=== PATIENT | female | born 1935 | race Caucasian/White ===

== ENCOUNTER 2017-11-21 13:45 | Emergency (ER) | payer OTHER ==
[~2017-11-21] VITALS: Ht 157.5 cm; Wt 76.2 kg
[2017-11-21 13:50] VITALS: Ht 157.5 cm; Wt 76.2 kg
[2017-11-21 14:35] VITALS: BP 124/69
== END 2017-11-21 14:35 | disposition home or self-care (01) ==
LOC: ED 13:45
DX: S80.812A Abrasion, left lower leg, initial encounter (principal); I10 Essential (primary) hypertension; Z88.0 Allergy status to penicillin; W22.8XXA Striking against or struck by other objects, initial encounter; Y93.89 Activity, other specified; Y92.89 Other specified places as the place of occurrence of the external cause; Y99.8 Other external cause status
CPT/HCPCS: 90715

== ENCOUNTER 2018-01-04 16:27 | Inpatient (IN) | payer OTHER ==
[~2018-01-04] VITALS: Ht 157.5 cm; Wt 79.4 kg
[2018-01-04 16:42] VITALS: Ht 157.5 cm; Wt 79.4 kg
[2018-01-04 18:53] LABS: CALCIUM 9.7 mg/dL (8.5-10.1); CARBON DIOXIDE 30.3 mmol/L (21-32); CHLORIDE SERUM 97 mmol/L (98-107); GLUCOSE SERUM 118 mg/dL (74-106); SODIUM SERUM 136 mmol/L (136-145)
[2018-01-04 18:59] LABS: CREATININE SERUM 6.4 mg/dL (0.6-1.0)
[2018-01-04 19:00] LABS: BASOPHIL % 0.4 % (0-2); PLATELET COUNT 152 x10^3mcL (130-400)
[2018-01-04 19:02] LABS: RED CELL DISTRIBUTION WIDTH 18.2 % (11.5-14.5)
[2018-01-04 19:50] LABS: ERYTHROCYTE SED RATE 66 mm/hr (0-30)
[2018-01-04 21:53] VITALS: BP 126/70
[2018-01-05 04:50] VITALS: BP 108/54
[2018-01-05 06:41] LABS: BASOPHIL % 0.7 % (0-2); PLATELET COUNT 140 x10^3mcL (130-400)
[2018-01-05 07:27] LABS: ALBUMIN 3.3 g/dL (3.4-5.0); ALKALINE PHOSPHATASE 111 U/L (46-116); ALT/SGPT 15 U/L (14-59); AST/SGOT 9 U/L (15-37); BILIRUBIN TOTAL 0.5 mg/dL (0.20-1.00); CALCIUM 9.1 mg/dL (8.5-10.1); CARBON DIOXIDE 26.3 mmol/L (21-32); CHLORIDE SERUM 100 mmol/L (98-107); GLUCOSE SERUM 81 mg/dL (74-106); MAGNESIUM 2.6 mg/dL (1.8-2.4); PHOSPHOROUS 6.7 mg/dL (2.5-4.9); SODIUM SERUM 138 mmol/L (136-145); TOTAL PROTEIN, SERUM 7.5 g/dL (6.4-8.2)
[2018-01-05 07:29] LABS: POTASSIUM SERUM 5.6 mmol/L (3.5-5.1)
[2018-01-05] MEDS ORDERED: LISINOPRIL2.5 MG PO (09:45)
[2018-01-05] MEDS ORDERED: XANAX0.5 MG PO (09:46)
[2018-01-05] MEDS ORDERED: AMLODIPINE BES2.5 M1 PO (09:47)
[2018-01-05] MEDS ORDERED: PRILOSEC OTC20 M1 PO (09:48)
[2018-01-05] MEDS ORDERED: PHOSLYRA667 MG/5 M PO (09:51)
[2018-01-05 10:06] VITALS: BP 111/62
[2018-01-05 13:43] VITALS: BP 111/62
[2018-01-05 16:57] VITALS: BP 123/67
[2018-01-05 20:15] VITALS: BP 131/51
== END 2018-01-05 21:40 | disposition home or self-care (01) | DRG 383 ==
LOC: ED 16:27 → MU 20:57
PROVIDERS: Emergency Medicine; Internal Medicine Pulmonary Disease
PROC: 5A1D70Z Performance of Urinary Filtration, Intermittent, Less than 6 Hours Per Day (ICD-10-PCS; principal; 2018-01-05)
DX: L03.116 Cellulitis of left lower limb (principal); I12.0 Hypertensive chronic kidney disease with stage 5 chronic kidney disease or end stage renal disease; E87.5 Hyperkalemia; I48.0 Paroxysmal atrial fibrillation; N18.6 End stage renal disease; J45.909 Unspecified asthma, uncomplicated; F41.9 Anxiety disorder, unspecified; K21.9 Gastro-esophageal reflux disease without esophagitis; D63.8 Anemia in other chronic diseases classified elsewhere; S81.802A Unspecified open wound, left lower leg, initial encounter; W18.39XA Other fall on same level, initial encounter; Z88.0 Allergy status to penicillin; Z99.2 Dependence on renal dialysis; Z95.828 Presence of other vascular implants and grafts; Y93.89 Activity, other specified; Z79.01 Long term (current) use of anticoagulants; Y92.098 Other place in other non-institutional residence as the place of occurrence of the external cause; Y99.8 Other external cause status
CPT/HCPCS: 83880; J1644; J2270; J3370; J3490; J7030; J7050; Q0092

== ENCOUNTER 2018-02-16 16:23 | Emergency (ER) | payer OTHER ==
[~2018-02-16] VITALS: Ht 152.4 cm; Wt 75.3 kg
[~2018-02-16 16:23] MED LIST: AMLODIPINE BES2.5 M1 PO; LISINOPRIL2.5 MG PO; PHOSLYRA667 MG/5 M PO; PRILOSEC OTC20 M1 PO; XANAX0.5 MG PO
[2018-02-16 16:26] VITALS: Ht 152.4 cm; Wt 75.3 kg
[2018-02-16 18:29] VITALS: BP 118/73
== END 2018-02-16 18:29 | disposition home or self-care (01) ==
LOC: ED 16:23
DX: L03.116 Cellulitis of left lower limb (principal); I10 Essential (primary) hypertension; Z99.2 Dependence on renal dialysis; Z88.0 Allergy status to penicillin
CPT/HCPCS: J3490; Q0092

== ENCOUNTER 2018-09-03 15:08 | Emergency (ER) | payer OTHER ==
[~2018-09-03] VITALS: Ht 152.4 cm; Wt 76.7 kg
[~2018-09-03 15:08] MED LIST changes: +COUMADIN3 MG PO; +GOOD SENSE OMEP20 MG PO; +PROAIR HFA8.5 GM IH; +RENA-VITE RX1 TAB
[2018-09-03 15:45] VITALS: BP 146/91; Ht 152.4 cm; Wt 76.7 kg
== END 2018-09-03 19:16 | disposition home or self-care (01) ==
LOC: ED 15:08
DX: K12.0 Recurrent oral aphthae (principal); I10 Essential (primary) hypertension; Z98.890 Other specified postprocedural states; Z88.0 Allergy status to penicillin

== ENCOUNTER 2018-10-13 10:21 | Emergency (ER) | payer OTHER ==
[~2018-10-13] VITALS: Ht 162.6 cm; Wt 75.3 kg
[~2018-10-13 10:21] MED LIST changes: -PHOSLYRA667 MG/5 M PO
[2018-10-13 10:46] VITALS: Ht 162.6 cm; Wt 75.3 kg
[2018-10-13 12:55] VITALS: BP 166/98
== END 2018-10-13 13:24 | disposition home or self-care (01) ==
LOC: ED 10:21
DX: G44.209 Tension-type headache, unspecified, not intractable (principal); I12.0 Hypertensive chronic kidney disease with stage 5 chronic kidney disease or end stage renal disease; N18.6 End stage renal disease; Z99.2 Dependence on renal dialysis; Z88.0 Allergy status to penicillin
CPT/HCPCS: J1885; J2765

== ENCOUNTER 2018-11-09 14:34 | Inpatient (IN) | payer OTHER ==
[~2018-11-09] VITALS: Ht 157.5 cm; Wt 73.7 kg
[2018-11-09 14:50] VITALS: Ht 157.5 cm; Wt 73.7 kg
--- NOTE | 2018-11-09 15:09 | NUR ---
DTR BRINGS IN MOM FOR C/O HEADACHE X 1 WEEK AND VOMITING X 3 DAYS. PT IS ON HD , COMPLETED TODAY WITHOUT ANY ISSUES OTHER THAN POUNDING GRADUIAL ONSET HEADACHE. WHEN ASKED QUESTIONS OF VISION, PT STATES SHE HAS ITCHING TO SHAZIA EYES, DENIES VISION CHNAGES. DENIES FEVERS/CHILLS. RESP EVEN AND UNLABORED, ON RA@95%, DENIES CP OR SOB. ABD ROUND/SOFT, NON TENDER TO PALPATION. DOUBLE LUMEN PHILIPPE NOTED TO LEFT ANTERIOR CHEST WALL. 2 DTS AT BEDSIDE, DSAFETY PRECAUTIONS IN PLACE, WAIITNG FOR MSE.
[2018-11-09 16:31] LABS: ALKALINE PHOSPHATASE 80 U/L (46-116); ALT/SGPT 21 U/L (14-59); AST/SGOT 12 U/L (15-37); BILIRUBIN TOTAL 0.4 mg/dL (0.20-1.00); CALCIUM 8.9 mg/dL (8.5-10.1); CARBON DIOXIDE 27.1 mmol/L (21-32); CHLORIDE SERUM 101 mmol/L (98-107); GLUCOSE SERUM 132 mg/dL (74-106); POTASSIUM SERUM 4.4 mmol/L (3.5-5.1); SODIUM SERUM 140 mmol/L (136-145); TOTAL PROTEIN, SERUM 6.3 g/dL (6.4-8.2)
[2018-11-09 16:34] LABS: ALBUMIN 2.9 g/dL (3.4-5.0); CREATININE SERUM 5.2 mg/dL (0.6-1.0)
--- NOTE | 2018-11-09 16:50 | NUR ---
I RECEIVED A CALL FROM LAB THAT THIS PT NEEDS A REDRAW FOR CBC PER SOFTWARE IMPLEMENTATION SPECIALIST GUTIERREZ.
[2018-11-09 17:14] LABS: BASOPHIL % 0.5 % (0-2); PLATELET COUNT 150 x10^3mcL (130-400)
--- NOTE | 2018-11-09 17:19 | NUR ---
PT STATES HE DOES NOT PRODUCE URINE EVERY DAY.
--- NOTE | 2018-11-09 18:27 | NUR ---
PT REPORTS FEELINGBETTER AFTER ZOFRAN AND REQUESTED FOOD , TOLEARTED WELL.
--- NOTE | 2018-11-09 19:05 | NUR ---
REPORT GIVEN TO DAVID CAI, UPDATED ON STATUS,LABS AND VITALS. PT STABLE FOR TRANSFER.
--- NOTE | 2018-11-09 19:27 | NUR ---
PER CY HIDALGO TO SEND PT TO [facility] WITHOUT URINE COLLECTION.
--- NOTE | 2018-11-09 20:03 | NUR ---
PT MEDICATED PER ORDER, PT VERBALIZED UNDERSTANDING OF MEDICATION PRIOR TO ADMINISTRATION. DAUGHTER AT BEDSIDE TO HELP TRANSLATE FOR PT.
[2018-11-09] MEDS ORDERED: AMLODIPINE BES2.5 M1 PO (20:18)
[2018-11-09] MEDS ORDERED: PHOSLYRA667 MG/5 M PO (20:18)
[2018-11-09] MEDS ORDERED: LISINOPRIL2.5 MG PO (20:18)
[2018-11-09] MEDS ORDERED: AMBIEN5 MG PO (20:18)
[2018-11-09] MEDS ORDERED: HYDRALAZINE HCL25 MG PO (20:18)
--- NOTE | 2018-11-09 20:22 | NUR ---
PT TRANSPORTED TO TELE AT THIS TIME. PT IS AWAKE AND ALERT, RESP E/U, DENIES PAIN. PT AND FAMILY AT BEDSIDE VERBALIZED UNDERSTANDING OF PLAN OF CARE PRIOR TO TRANSPORT. NAD NOTED UPON LEAVING ED. PT TRANSPORTED BY RN BENNY AND EMT JIMENEZ.
[2018-11-09 20:56] VITALS: BP 125/72
--- NOTE | 2018-11-09 21:01 | NUR ---
RECEIVED PT FROM ED VIA [facility]. TELE 1 PLACED ON PT READING NSR. ENDORSED PT TO PRIMARY NURSE DAVID
[2018-11-09 21:06] VITALS: BP 125/72
[2018-11-09 21:50] LABS: MAGNESIUM 2.2 mg/dL (1.8-2.4); PHOSPHOROUS 4.5 mg/dL (2.5-4.9)
[2018-11-09 21:53] LABS: CHOLESTEROL/HDL RATIO 3.4
--- NOTE | 2018-11-09 22:00 | NUR ---
RECEIVED REPORT FROM ADMITTING RN. PT [email or web address], ABLE TO MAKE NEEDS KNOWN. DENIES ANY CP/PRESSURE. DENIES ANY PAIN. BREATHING EVEN AND UNLBAORED ON RA. NO ACUTE DISTRESS NOTED. BED AT LOWEST SETTING. SIDE RAILS X2 UP. CALL LIGHT WITHING REACH. WILL CONTINUE TO MONITOR.
--- NOTE | 2018-11-10 01:30 | NUR ---
PT STATES HAVING DIFFICULTY FALLING ASLEEP. SHE STATES SHE USUALLY TAKES SOMETHING TO HELP HER SLEEP EVERYDAY AT NIGHT. MEDICATED WITH AMBIEN PER MAR WILL CONTINUE TO MONITOR.
--- NOTE | 2018-11-10 02:00 | NUR ---
PT LAYING IN BED, WITH EYES CLOSED. BREATHING EVEN AND UNLABORED ON RA. NO ACUTE DISTRESS NOTED. BED AT LOWEST SETTING. SIDE RAILS X2 UP. CALL LIGHT WITHING REACH. WILL CONTINUE TO MONITOR.
[2018-11-10 05:47] VITALS: BP 120/68
--- NOTE | 2018-11-10 06:24 | NUR ---
PT SLEPT WELL THROGHOUT THE NIGHT AFTER MEDICATED WITH AMBIEN PER JUN. BREATHING EVEN AND UNLBORED ON RA. O2 SAT AT 97%. NO RESP DISTRESS NOTED. ALLL NEEDS ASSESSED AND ATTENDED TO. IV SL TO LH FLUSHING WELL. SITE FREE FROM REDNESS AND SWELLING. BED A LOWEST SETTING. SIDE RAILS X2 UP. CALL LIGHT WITHING REACH. WILL ENDORSE CARE TO AM NURSE.
[2018-11-10 06:32] LABS: BASOPHIL % 0.7 % (0-2); PLATELET COUNT 148 x10^3mcL (130-400)
[2018-11-10 06:42] LABS: RED CELL DISTRIBUTION WIDTH 18.9 % (11.5-14.5)
[2018-11-10 06:58] LABS: CALCIUM 8.8 mg/dL (8.5-10.1); CARBON DIOXIDE 29.6 mmol/L (21-32); CHLORIDE SERUM 102 mmol/L (98-107); GLUCOSE SERUM 84 mg/dL (74-106); MAGNESIUM 2.3 mg/dL (1.8-2.4); POTASSIUM SERUM 5.1 mmol/L (3.5-5.1); SODIUM SERUM 141 mmol/L (136-145)
[2018-11-10 07:17] LABS: CREATININE SERUM 6.2 mg/dL (0.6-1.0)
--- NOTE | 2018-11-10 07:45 | NUR ---
ALERT AND ORIENTED. BREATHING FREELY ON RA. DENIES ANY PAIN. ASSIST W BRP. HD PT LAST HD Monday11/09/18. MANUEL CATH TO LEFT UPPER CHEST. OLD AV SHUNT TO LEFT UPPER ARM NOT IN USE. SL TO LEFT HAND PATENT.TELE # 1 SR. CALL LIGHT WITH IN REACH. PT USES WALKER AT HOME.
[2018-11-10 08:53] VITALS: BP 104/52
--- NOTE | 2018-11-10 10:50 | NUR ---
SENT 1 VERY SMALL VOID TO LAB FOR STUDIES. ACCORDING TO PTS DTR IN LAW PT VOIDS ONCE Q 24 HOURS.
[2018-11-10 10:51] LABS: FREE T4 1.08 ng/dL (0.76-1.46); T3 TOTAL 0.51 ng/mL; T4(THYROXINE) 5.4 ug/dL (4.7-13.3)
[2018-11-10 11:10] LABS: microscopic required? YES; urine erythrocyte NEGATIVE (NEGATIVE)
[2018-11-10 11:26] LABS: AMPHETAMINE QUAL UR NONE DETECTED (See below)
[2018-11-10 13:24] VITALS: BP 137/72
--- NOTE | 2018-11-10 13:50 | NUR ---
ECHO IN PROGRESS
[2018-11-10 14:51] VITALS: BP 13/72
[2018-11-10] MEDS ORDERED: PHOSLYRA667 MG/5 M PO (14:55)
[2018-11-10 16:27] VITALS: BP 121/61
--- NOTE | 2018-11-10 17:15 | NUR ---
DC'D TO HOME. IV DC'D INTAACT. TELE # 1 RETURNED TO TELE STATION. PT TO CALL PCP FOR F/U DAVID. PRESCRIPTIONS GIVEN. ALL DC INSTRUCTIONS REVIEWED WITH AND SIGNED BY PT WITH DNA ANALYST AT BEDSIDE.
== END 2018-11-10 17:22 | disposition home or self-care (01) | DRG 470 ==
LOC: ED 14:34 → DU 18:03
PROVIDERS: Emergency Medicine; ADMIT General Practice
DX: I12.0 Hypertensive chronic kidney disease with stage 5 chronic kidney disease or end stage renal disease (principal); J81.0 Acute pulmonary edema; E44.0 Moderate protein-calorie malnutrition; N18.6 End stage renal disease; I48.2 Chronic atrial fibrillation; D63.1 Anemia in chronic kidney disease; G43.911 Migraine, unspecified, intractable, with status migrainosus; Z68.26 Body mass index [BMI] 26.0-26.9, adult; Z99.2 Dependence on renal dialysis; Z79.01 Long term (current) use of anticoagulants; Z87.891 Personal history of nicotine dependence
CPT/HCPCS: 36600; 83880; 84439; G0378; J1885; J1940; J2405; Q0092

== ENCOUNTER 2019-12-12 18:32 | Emergency (ER) | payer OTHER ==
[~2019-12-12] VITALS: Ht 157.5 cm; Wt 77.1 kg
[~2019-12-12 18:32] MED LIST changes: +AMBIEN5 MG PO; +HYDRALAZINE HCL25 MG PO; +PHOSLYRA667 MG/5 M PO
[2019-12-12 18:37] VITALS: Ht 157.5 cm; Wt 77.1 kg
[2019-12-12 20:40] LABS: BASOPHIL % 0.1 % (0-2); PLATELET COUNT 144 x10^3mcL (130-400)
[2019-12-12 20:43] LABS: RED CELL DISTRIBUTION WIDTH 17.7 % (11.5-14.5)
[2019-12-12 21:00] LABS: ALBUMIN 3.7 g/dL (3.4-5.0); ALKALINE PHOSPHATASE 114 U/L (46-116); ALT/SGPT 17 U/L (14-59); AST/SGOT 11 U/L (15-37); BILIRUBIN TOTAL 0.5 mg/dL (0.20-1.00); CALCIUM 11.9 mg/dL (8.5-10.1); CARBON DIOXIDE 27.6 mmol/L (21-32); CHLORIDE SERUM 96 mmol/L (98-107); GLUCOSE SERUM 97 mg/dL (74-106); HDL CHOLESTEROL 59 mg/dL (40-60); LIPASE 118 IU/L (73-393); POTASSIUM SERUM 5.5 mmol/L (3.5-5.1); SODIUM SERUM 136 mmol/L (136-145); T4(THYROXINE) 8.6 ug/dL (4.7-13.3); TOTAL PROTEIN, SERUM 7.4 g/dL (6.4-8.2)
[2019-12-12 21:04] LABS: CHOLESTEROL 115 mg/dL (<200); CREATININE SERUM 7.9 mg/dL (0.6-1.0)
[2019-12-12 23:02] VITALS: BP 159/65
== END 2019-12-12 23:02 | disposition home or self-care (01) ==
LOC: ED 18:32
PROVIDERS: Emergency Medicine
DX: R60.9 Edema, unspecified (principal); N18.6 End stage renal disease; I10 Essential (primary) hypertension; I51.7 Cardiomegaly; D64.9 Anemia, unspecified; Z98.890 Other specified postprocedural states; Z88.0 Allergy status to penicillin
CPT/HCPCS: 83880; Q0092